=== PATIENT | female | born 2000 | race Caucasian/White ===

== ENCOUNTER → 2021-08-19 | Day surgery (SDC) | payer MEDICAID ==
[~2021-08-19] MED LIST: Ketamine 200 MG/20 ML MDV ONE; Lactated Ringers 1,000 ML IV SCH; Propofol 200 MG/20 ML SDV ONE; fentaNYL 100 MCG/2 ML SDV ONE
[2021-08-19 15:06] VITALS: BP 88/50; PULSE 65
== END ==
LOC: CC.SDS 09:51
PROVIDERS: ATTEND Surgery
DX: R11.0 Nausea (principal); R10.30 Lower abdominal pain, unspecified; R63.4 Abnormal weight loss; R63.0 Anorexia; F32.A Depression, unspecified; F41.9 Anxiety disorder, unspecified; Z79.899 Other long term (current) drug therapy
CPT/HCPCS: 36415; 43239; 84703; 87081; J2704; J3010; J7120; 00731